=== PATIENT | female | born 1960 | race Caucasian/White ===

== ENCOUNTER → 2017-12-21 | Outpatient (CLI) | payer OTHER ==
--- NOTE | 2017-12-21 12:04 | XR ---
EXAMINATION TYPE: XR foot complete LT DATE OF EXAM: 12/21/2017 COMPARISON: NONE HISTORY: 57-year-old female crushing injury to the left foot, bruising across the second and third me tatarsals. TECHNIQUE: 3 views FINDINGS: Excessive flexion of the toes limits their assessment. Further limitations due to diffuse osteopenia. There is some slight angulation and lucency at the fourth metatarsal neck. Findings suggest age inde terminate fracture. Moderate to severe degenerative change at the third MTP joint. Midfoot alignment is maintained. IMPRESSION: 1. Some lucency and slight angulation at the fourth metatarsal neck. Age-indeterminate fracture. Oscar elate for point tenderness here to assess acuity. 2. Otherwise, no other acute fracture seen.
== END | disposition home or self-care (01) ==
LOC: RADXRMAIN 11:36
PROVIDERS: ATTEND Emergency Medicine
DX: S97.82XA Crushing injury of left foot, initial encounter (principal)

== ENCOUNTER → 2018-04-11 | Outpatient (CLI) | payer BC ==
[2018-04-11 11:07] LABS: Basophils % (A) 1 %; Eosinophils # (A) 0.2 k/uL (0-0.7); Eosinophils % (A) 4 %; HCT 39.2 % (34.0-46.0); HGB 11.9 gm/dL (11.4-16.0); Hypochromasia Marked; Lymphocytes # (A) 1.7 k/uL (1.0-4.8); Lymphocytes % (A) 36 %; MCH 23.5 pg (25.0-35.0); MCHC 30.4 g/dL (31.0-37.0); MCV 77.2 fL (80.0-100.0); Mean Platelet Volume 6.7; Monocytes # (A) 0.3 k/uL (0-1.0); Monocytes % (A) 6 %; Neutrophils # (A) 2.3 k/uL (1.3-7.7); Neutrophils % (A) 50 %; Platelet Count 177 k/uL (150-450); RBC 5.08 m/uL (3.80-5.40); WBC 4.6 k/uL (3.8-10.6)
[2018-04-11 11:15] LABS: Albumin 3.9 g/dL (3.5-5.0); Calcium 9.2 mg/dL (8.4-10.2); Potassium 4.7 mmol/L (3.5-5.1); Total Protein 6.7 g/dL (6.3-8.2)
[2018-04-11 18:48] LABS: Iron Saturation 8.55 (12.00-45.00)
[2018-04-11 19:36] LABS: Hepatitis C IgG Antibody Non-Reactive (Non-Reactive)
== END | disposition home or self-care (01) ==
LOC: LABWHC1 10:23
PROVIDERS: ATTEND Internal Medicine
DX: D64.9 Anemia, unspecified (principal); E53.8 Deficiency of other specified B group vitamins; R63.5 Abnormal weight gain; Z13.6 Encounter for screening for cardiovascular disorders; Z13.9 Encounter for screening, unspecified
CPT/HCPCS: 36415; 80053; 80061; 82607; 83540; 83550; 84443; 85025; 86803

== ENCOUNTER → 2018-05-07 | Outpatient (CLI) | payer BC ==
--- NOTE | 2018-05-10 08:35 | MM ---
Reason for exam: screening (asymptomatic). Last mammogram was performed 3 years and 2 months ago. History: Patient is postmenopausal. Physical Findings: A clinical breast exam by your physician is recommended on an annual basis and results should be correlated with mammographic findings. MG 3D Screening Mammo W/Cad Bilateral CC and MLO view(s) were taken. Prior study comparison: March 18, 2015, mammogram. The breast tissue is heterogeneously dense. This may lower the sensitivity of mammography. No significant changes when compared with prior studies. ASSESSMENT: Benign, BI-RAD 2 RECOMMENDATION: Routine screening mammogram of both breasts in 1 year.
== END | disposition home or self-care (01) ==
LOC: RADMAMWWP 07:01
PROVIDERS: ATTEND Internal Medicine
DX: Z12.31 Encounter for screening mammogram for malignant neoplasm of breast (principal)
CPT/HCPCS: 77063; 77067

== ENCOUNTER → 2018-12-24 | Outpatient (CLI) | payer BC ==
[2018-12-24 12:54] LABS: INR 0.9 (<1.2); Partial Thromboplastin Time 24.8 sec (22.0-30.0)
[2018-12-24 13:40] LABS: Anisocytosis Slight; HCT 36.3 % (34.0-46.0); HGB 10.8 gm/dL (11.4-16.0); Hypochromasia Moderate; MCH 23.8 pg (25.0-35.0); MCHC 29.6 g/dL (31.0-37.0); MCV 80.3 fL (80.0-100.0); Mean Platelet Volume 6.8; Platelet Count 171 k/uL (150-450); RBC 4.52 m/uL (3.80-5.40)
[2018-12-24 18:44] LABS: ALT 14 U/L (8-44); AST 18 U/L (13-35); Albumin/Globulin Ratio 1.95 (1.60-3.17); Alkaline Phosphatase 59 U/L (41-126); Calcium 8.9 mg/dL (8.7-10.3); Carbon Dioxide 28.5 mmol/L (21.6-31.8); Chloride 111 mmol/L (96-109); Cholesterol 132 mg/dL (0-200); Globulin 1.9 g/dL (1.6-3.3); Glucose 78 mg/dL (70-110); Phosphorus 4.2 mg/dL (2.4-5.1); Potassium 4.6 mmol/L (3.5-5.5); Sodium 142 mmol/L (135-145); Total Bilirubin 0.8 mg/dL (0.3-1.2); Total Protein 5.6 g/dL (6.2-8.2); Triglycerides <50.0 mg/dL (0.0-149.0); VLDL Calculation 9.98 mg/dL (5.00-40.00)
[2018-12-24 18:45] LABS: Iron Saturation 18.77 (12.00-45.00)
[2018-12-24 19:03] LABS: Vitamin D 25 Hydroxy 78.5 ng/mL (30.0-100.0)
[2018-12-24 19:04] LABS: Folate, Serum 10.7 ng/mL
[2018-12-24 20:21] LABS: Parathyroid Hormone Intact 66.9 pg/mL (14.0-72.0)
[2018-12-24 23:03] LABS: Hemoglobin A1C 5.4 % (4.0-6.0)
[2018-12-25 12:46] LABS: Zinc, Serum 58 ug/dL (60-130)
[2018-12-26 08:07] LABS: Vitamin A 41 ug/dL (38-106)
[2018-12-26 15:32] LABS: Vit B1(Thiamine) 66 ug/L (38-122)
[2018-12-26 19:13] LABS: Selenium 103 mcg/L (63-160)
== END | disposition home or self-care (01) ==
LOC: LABWHC1 11:23
PROVIDERS: ATTEND Surgery Plastic and Reconstructive Surgery
DX: Z01.810 Encounter for preprocedural cardiovascular examination (principal); E66.01 Morbid (severe) obesity due to excess calories; E21.1 Secondary hyperparathyroidism, not elsewhere classified; D50.8 Other iron deficiency anemias; K90.89 Other intestinal malabsorption; E55.9 Vitamin D deficiency, unspecified; K74.1 Hepatic sclerosis; N19 Unspecified kidney failure; K50.80 Crohn's disease of both small and large intestine without complications
CPT/HCPCS: 36415; 80053; 80061; 82306; 82525; 82607; 82728; 82746; 83036; 83540; 83550; 83735; 83970; 84100; 84134; 84255; 84425; 84443; 84590; 84630; 85027; 85610; 85730; 93005

== ENCOUNTER → 2018-12-27 | Outpatient (CLI) | payer BC ==
--- NOTE | 2018-12-27 13:18 | US ---
EXAMINATION TYPE: US gallbladder DATE OF EXAM: 12/27/2018 COMPARISON: NONE CLINICAL HISTORY: K80.20 Gallstones. EXAM MEASUREMENTS: Liver Length: 11.5 cm Gallbladder Wall: 0.3 cm CBD: 0.3 cm Right Kidney: 10.6 x 3.1 x 4.8 cm Pancreas: visualized portions wnl Liver: wnl Gallbladder: many small mobile echogenic stones. There are multiple folds in gallbladder. Evidence for sonographic Rhodes's sign: Yes CBD: wnl Right Kidney: No hydronephrosis or masses seen IMPRESSION: 1. Multiple small echogenic gallstones. No wall thickening or pericholecystic fluid at this time.
--- NOTE | 2018-12-30 11:42 | NM ---
Nuclear medicine hepatobiliary scan. HISTORY: Pain. DOSAGE: The patient received and 4.8 mCi of Technetium 99m Choletec. FINDINGS: There is normal hepatic extraction. The gallbladder is seen by 20 minutes. There is bilia ry to bowel clearance by 50 minutes. Ejection fraction is not performed due to the presence of galls tones. IMPRESSION: 1. There is normal filling of the gallbladder with no diagnostic evidence of cholecystitis.
== END | disposition home or self-care (01) ==
LOC: RADUSWWP 12:44
PROVIDERS: ATTEND Surgery Plastic and Reconstructive Surgery
DX: K80.20 Calculus of gallbladder without cholecystitis without obstruction (principal)
CPT/HCPCS: 76705; 78226; A9537

== ENCOUNTER 2018-12-30 12:12 | Emergency (ER) | payer BC ==
[2018-12-30 12:18] VITALS: RESP 18
[2018-12-30] MEDS ORDERED: SODIUM CHLORIDE 0.9% 1,000 ML IV STA (12:26)
[2018-12-30] MEDS ORDERED: ONDANSETRON 4 MG/2 ML VIAL IVP STA (12:26)
[2018-12-30] MEDS ORDERED: HYDROmorphone 0.5 MG/0.5 ML SYRINGE IVP STA (12:35)
[2018-12-30 13:01] LABS: Anisocytosis Slight; Basophils % (A) 1 %; Eosinophils # (A) 0.2 k/uL (0-0.7); Eosinophils % (A) 5 %; HCT 35.3 % (34.0-46.0); HGB 10.6 gm/dL (11.4-16.0); Hypochromasia Slight; Lymphocytes # (A) 1.3 k/uL (1.0-4.8); Lymphocytes % (A) 24 %; MCH 24.4 pg (25.0-35.0); MCHC 30.1 g/dL (31.0-37.0); MCV 80.9 fL (80.0-100.0); Monocytes # (A) 0.3 k/uL (0-1.0); Monocytes % (A) 6 %; Neutrophils # (A) 3.3 k/uL (1.3-7.7); Neutrophils % (A) 64 %; Platelet Count 174 k/uL (150-450); RBC 4.37 m/uL (3.80-5.40); RDW 16.6 % (11.5-15.5); WBC 5.2 k/uL (3.8-10.6)
--- NOTE | 2018-12-30 13:06 | ED ---
Abdominal Pain HPI - General Chief Complaint: Abdominal Pain Stated Complaint: gallbladder Source: patient, RN notes reviewed Mode of arrival: ambulatory Limitations: no limitations - History of Present Illness Initial Comments: 58-year-old female presents emergency Department with chief complaint of abdominal pain. Patient states started this morning after she ate some soup. Patient states that severe upper abdominal pain radiates. Patient states that she's had this ongoing issue over the last 4-6 weeks and which she has seen Dr. Noonan for. Patient states that she does have an ultrasound and HIDA scan which showed evidence of gallstones. She states they're planning surgery. Patient denies any chest pain, shortness breath, dysuria, hematuria, diarrhea constipation. - Related Data Home Medications Medication Instructions Recorded Confirmed Acetaminophen Tab [Tylenol Tab] 1,000 mg PO Q6HR PRN 12/30/18 12/30/18 Cholecalciferol (Vitamin D3) 2,000 unit PO DAILY 12/30/18 12/30/18 [Vitamin D3] Multivitamins, Thera [Multivitamin 1 tab PO DAILY 12/30/18 12/30/18 (formulary)] Potassium 99 mg PO DAILY 12/30/18 12/30/18 Previous Rx's Medication Instructions Recorded Ondansetron Odt [Zofran Odt] 4 mg PO Q8HR PRN #10 tab 12/30/18 Allergies Allergy/AdvReac Type Severity Reaction Status Date / Time No Known Allergies Allergy Verified 12/30/18 12:37 Review of Systems ROS Statement: Those systems with pertinent positive or pertinent negative responses have been documented in the HPI. ROS Other: All systems not noted in ROS Statement are negative. Past Medical History Past Medical History: No Reported History History of Any Multi-Drug Resistant Organisms: None Reported Past Surgical History: Bariatric Surgery Additional Past Surgical History / Comment(s): gastric sleeve, gastric surgery and reversal Past Psychological History: No Psychological Hx Reported Smoking Status: Never smoker Past Alcohol Use History: None Reported Past Drug Use History: None Reported General Exam Limitations: no limitations General appearance: alert, in no apparent distress Head exam: Present: atraumatic, normocephalic, normal inspection Neck exam: Present: normal inspection, full ROM. Absent: tenderness, meningismus, lymphadenopathy Respiratory exam: Present: normal lung sounds bilaterally. Absent: respiratory distress, wheezes, rales, rhonchi, stridor Cardiovascular Exam: Present: regular rate, normal rhythm, normal heart sounds. Absent: systolic murmur, diastolic murmur, rubs, gallop, clicks GI/Abdominal exam: Present: soft, tenderness (Moderate upper abdominal ten derness), normal bowel sounds. Absent: distended, guarding, rebound, rigid Back exam: Absent: CVA tenderness (R), CVA tenderness (L) Skin exam: Present: warm, dry, intact, normal color. Absent: rash Course Vital Signs 12/30/18 12:15 Temperature 97.8 F Pulse Rate 67 Respiratory 18 Rate Blood Pressure 126/68 O2 Sat by Pulse 100 Oximetry Medical Decision Making - Medical Decision Making 58-year-old female present for abdominal pain. Patient has had recent workup including HIDA SCAN. ULTRASOUND SHOWS MULTIPLE GALLSTONES. SYMPTOMS ARE CONSISTENT WITH THIS. PATIENT DID A FATTY FOODS MORNING. PATIENT HAS IMPROVED AFTER IV FLUIDS AND PAIN MEDICATION. PATIENT WILL BE DISCHARGED RETURN PARAMETERS WERE DISCUSSED. - Lab Data Result diagrams: 12/30/18 12:56 12/30/18 12:56 Lab Results 12/30/18 12/30/18 12/30/18 Range/Units 12:56 12:56 12:56 WBC 5.2 (3.8-10.6) k/uL RBC 4.37 (3.80-5.40) m/uL Hgb 10.6 L (11.4-16.0) gm/dL Hct 35.3 (34.0-46.0) % MCV 80.9 (80.0-100.0) fL MCH 24.4 L (25.0-35.0) pg MCHC 30.1 L (31.0-37.0) g/dL RDW 16.6 H (11.5-15.5) % Plt Count 174 (150-450) k/uL Neutrophils % 64 % Lymphocytes % 24 % Monocytes % 6 % Eosinophils % 5 % Basophils % 1 % Neutrophils # 3.3 (1.3-7.7) k/uL Lymphocytes # 1.3 (1.0-4.8) k/uL Monocytes # 0.3 (0-1.0) k/uL Eosinophils # 0.2 (0-0.7) k/uL Basophils # 0.0 (0-0.2) k/uL Hypochromasia Slight Anisocytosis Slight Sodium 143 (137-145) mmol/L Potassium 4.4 (3.5-5.1) mmol/L Chloride 113 H (98-107) mmol/L Carbon Dioxide 24 (22-30) mmol/L Anion Gap 6 mmol/L BUN 12 (7-17) mg/dL Creatinine 0.82 (0.52-1.04) mg/dL Est GFR (CKD-EPI)AfAm >90 (>60 ml/min/1.73 sqM) Est GFR (CKD-EPI)NonAf 80 (>60 ml/min/1.73 sqM) Glucose 76 (74-99) mg/dL Calcium 8.9 (8.4-10.2) mg/dL Total Bilirubin 0.9 (0.2-1.3) mg/dL AST 17 (14-36) U/L ALT 20 (9-52) U/L Alkaline Phosphatase 56 (38-126) U/L Total Protein 5.7 L (6.3-8.2) g/dL Albumin 3.2 L (3.5-5.0) g/dL Amylase 70 (30-110) U/L Lipase 240 (23-300) U/L Urine Color Colorless Urine Appearance Clear (Clear) Urine pH 6.5 (5.0-8.0) Ur Specific [place] 1.002 (1.001-1.035) Urine Protein Negative (Negative) Urine Glucose (UA) Negative (Negative) Urine Ketones Negative (Negative) Urine Blood Negative (Negative) Urine Nitrite Negative (Negative) Urine Bilirubin Negative (Negative) Urine Urobilinogen <2.0 (<2.0) mg/dL Ur Leukocyte Esterase Small H (Negative) Urine RBC 1 (0-5) /hpf Urine WBC 19 H (0-5) /hpf Urine Bacteria Rare H (None) /hpf Disposition Clinical Impression: Biliary colic, Cholelithiasis Disposition: HOME SELF-CARE Condition: Stable Instructions (If sedation given, give patient instructions): Biliary Colic (ED), Gallstones (ED), Low Fat Diet (ED) Additional Instructions: Please return to the Emergency Department if symptoms worsen or any other concerns. Prescriptions: Ondansetron Odt [Zofran Odt] 4 mg PO Q8HR PRN #10 tab PRN Reason: Nausea Is patient prescribed a controlled substance at d/c from ED?: No Referrals: Hernan Melendez MD [Primary Care Provider] - 1-2 days Chari Matthew MD [STAFF PHYSICIAN] - 1-2 days Time of Disposition: 14:15
[2018-12-30 13:12] LABS: ALT 20 U/L (9-52); AST 17 U/L (14-36); Albumin 3.2 g/dL (3.5-5.0); Alkaline Phosphatase 56 U/L (38-126); Amylase 70 U/L (30-110); Anion Gap 6 mmol/L; Blood Urea Nitrogen 12 mg/dL (7-17); Calcium 8.9 mg/dL (8.4-10.2); Carbon Dioxide 24 mmol/L (22-30); Chloride 113 mmol/L (98-107); Glucose 76 mg/dL (74-99); Lipase 240 U/L (23-300); Potassium 4.4 mmol/L (3.5-5.1); Sodium 143 mmol/L (137-145); Total Bilirubin 0.9 mg/dL (0.2-1.3); Total Protein 5.7 g/dL (6.3-8.2)
[2018-12-30 13:17] LABS: Appearance,Urine Clear (Clear); Bacteria,Urine Rare /hpf; Bilirubin,Urine Negative (Negative); Blood,Urine Negative (Negative); Color,Urine Colorless; Glucose,Urine (UA) Negative (Negative); Ketones,Urine Negative (Negative); Leukocyte Esterase,Urine Small (Negative); Nitrite,Urine Negative (Negative); PH, Urine 6.5 (5.0-8.0); Protein,Urine Negative (Negative); RBC,Urine 1 /hpf (0-5); Specific Gravity,Urine 1.002 (1.001-1.035); Urobilinogen,Urine <2.0 mg/dL (<2.0)
[2018-12-30] MEDS ORDERED: ACET/COD 300 MG/30 MG STARTER PACK 6 TAB BTL PO STA (14:15)
[2018-12-30 14:28] VITALS: BP 103/72; PULSE 66; TEMP 97.9
== END 2018-12-30 14:28 | disposition home or self-care (01) ==
LOC: EC 12:12
DX: K80.70 Calculus of gallbladder and bile duct without cholecystitis without obstruction (principal); Z98.84 Bariatric surgery status
CPT/HCPCS: 36415; 80053; 82150; 83690; 85025; 81001; 87086; 99284; 96374; 96375; 96361 ×2; J2405; J1170; 87077; 87186

== ENCOUNTER 2019-02-07 06:49 | Day surgery (SDC) | payer BC ==
[2019-02-05 08:20] VITALS: BMI 32.8
--- NOTE | 2019-02-07 06:21 | P.GSHP ---
History of Present Illness H&P Date: 02/07/19 CHIEF COMPLAINT: Cholecystitis HISTORY OF PRESENT ILLNESS: The patient is a 58-year-old female who presents with history of epigastric including right upper quadrant abdominal pain. She underwent diagnostic studies for her gallbladder. Separately her clinical picture was consistent with cholecystitis. Now she presents for surgical intervention. PAST MEDICAL HISTORY: Please see list PAST SURGICAL HISTORY: Please see list MEDICATIONS: Please see list ALLERGIES: Denies. SOCIAL HISTORY: No illicit drug use or recent tobacco use FAMILY HISTORY: Pertinent for gallbladder disease REVIEW OF ORGAN SYSTEMS: CONSTITUTIONAL: No reports of fevers or chills. HEENT: Denies any troubles with the vision or hearing. PHYSICAL EXAM: VITAL SIGNS: Afebrile vital signs stable GENERAL: Well-developed pleasant in no acute distress. HEENT: No scleral icterus. Extraocular movements grossly intact. Moist buccal mucosa. NECK: Supple without lymphadenopathy. CHEST: Unlabored respirations. Equal bilateral excursions. CARDIOVASCULAR: Regular rate regular rhythm rhythm. Distal 2+ pulses. ABDOMEN: Soft, nondistended. Tender along the epigastrium and right upper quadrant. MUSCULOSKELETAL: No clubbing, cyanosis, or edema. NEURO: Cranial nerves II to XII within normal limits. No focal or lateralizing signs. PSYCH: Alert and oriented to person, place and time. SKIN: Well-perfused good skin turgor. ASSESSMENT: 1. Epigastric and right upper quadrant abdominal pain 2. Chronic cholecystitis 3. Symptomatic gallstones. PLAN: 1. Will need a robotic cholecystectomy possible open. Benefits and risks were described. 2. Heparin for DVT prophylaxis 5000 units. 3. Antibiotic prophylaxis. Past Medical History Past Medical History: No Reported History Additional Past Medical History / Comment(s): intermittent rt abd pain with nausea,hypoglycemia History of Any Multi-Drug Resistant Organisms: None Reported Past Surgical History: Bariatric Surgery, Tonsillectomy Additional Past Surgical History / Comment(s): gastric sleeve, gastric surgery and reversal of gastric sleeve Past Anesthesia/Blood Transfusion Reactions: No Reported Reaction Additional Past Anesthesia/Blood Transfusion Reaction / Comment(s): no problems with prior blood transfusion Smoking Status: Never smoker - Past Family History Mother Family Medical History: Deep Vein Thrombosis (DVT) Medications and Allergies Home Medications Medication Instructions Recorded Confirmed Type Acetaminophen Tab [Tylenol Tab] 1,000 mg PO Q6HR PRN 12/30/18 02/05/19 History Cholecalciferol (Vitamin D3) 2,000 unit PO DAILY 12/30/18 02/05/19 History [Vitamin D3] Multivitamins, Thera [Multivitamin 1 tab PO DAILY 12/30/18 02/05/19 History (formulary)] Potassium 99 mg PO DAILY 12/30/18 02/05/19 History Allergies Allergy/AdvReac Type Severity Reaction Status Date / Time No Known Allergies Allergy Verified 02/05/19 08:14
[~2019-02-07 06:49] MED LIST: DEXAMETHASONE SOD PHOSPHATE 10 MG/ML 1 ML VIAL IV ONE; HEPARIN SODIUM,PORCINE 5,000 UNIT/ML 1 ML VIAL SQ ONE; INDOCYANINE GREEN 25 MG VIAL IV STA; LACTATED RINGERS 1,000 ML IV SCH; MIDAZOLAM 2 MG/2 ML VIAL IV PRN; ONDANSETRON 4 MG/2 ML VIAL IVP ONE; SCOPOLAMINE 1.5MG/72HR PATCH TRANSDERM ONE; ceFAZolin IN SWFI 2 GM/20 ML SYRINGE IVP ONE
[2019-02-07 07:11] VITALS: TEMP 98
[2019-02-07] MEDS ORDERED: LIDOCAINE 1% 20 ML VIAL (10MG/ML) FOR IV START INTRADERMA ONE (07:31)
[2019-02-07 07:38] LABS: Glucose,Whole Blood 72 mg/dL (75-99)
[2019-02-07] MEDS ORDERED: LIDOCAINE 1% INJ 10MG/ML (20 ML MDV) ONE (09:09)
[2019-02-07] MEDS ORDERED: HYDROmorphone (PF) 1 MG/ML ONE (09:09)
[2019-02-07] MEDS ORDERED: SUCCINYLCHOLINE CHLORIDE 100 MG/5 ML SYR IV ONE (09:09)
[2019-02-07] MEDS ORDERED: ROCURONIUM BROMIDE 10 MG/ML 10 ML VIAL IV ONE (09:09)
[2019-02-07] MEDS ORDERED: fentaNYL (PF) 50 MCG/ML 2 ML AMP ONE (09:09)
[2019-02-07] MEDS ORDERED: NEOSTIGMINE 1 MG/ML 10 ML VIAL ONE (09:09)
[2019-02-07] MEDS ORDERED: KETOROLAC 30 MG/ML 1 ML VIAL ONE (09:09)
[2019-02-07] MEDS ORDERED: GLYCOPYRROLATE 0.2 MG/ML 2 ML VIAL ONE (09:09)
[2019-02-07] MEDS ORDERED: MIDAZOLAM 2 MG/2 ML VIAL ONE (09:09)
[2019-02-07] MEDS ORDERED: PROPOFOL 10 MG/ML 20 ML VIAL IV ONE (09:09)
[2019-02-07] MEDS ORDERED: BUPIVACAINE (PF) 0.5% 30 ML VIAL SQ ONE (09:39)
--- NOTE | 2019-02-07 10:54 | P.OP ---
Date of Procedure: 02/07/19 Description of Procedure: SURGEON: CONNOR CATALAN MD PREOPERATIVE DIAGNOSES: 1. Right upper quadrant abdominal pain 2. Chronic cholecystitis 3. Obesity due to excess calories, BMI 32.8 4. History of sleeve gastrectomy POSTOPERATIVE DIAGNOSES: 1. Right upper quadrant abdominal pain 2. Chronic cholecystitis 3. Obesity due to excess calories, BMI 32.8 4. History of sleeve gastrectomy 5. Sever peritoneal adhesions bilateral upper abdomen OPERATION: 1. Robotic-assisted da Yoni Xi laparoscopic extensive assistance of adhesions over 35 minutes 2. Robotic-assisted da Yoni Xi laparoscopic cholecystectomy, multiport with FIREFLY ESTIMATED BLOOD LOSS: 20 mL. SPECIMENS REMOVED: Gallbladder. COMPLICATIONS: None. OPERATIVE FINDINGS: 1. Severe bilateral upper abdominal adhesions from previous multiple surgeries. 2. Severe adhesions obscuring the gallbladder omentum to the undersurface of left and right liver 3. Chronic cholecystitis 4. Lower abdomen unremarkable INDICATIONS: The patient is a 58-year-old female who presents with bilateral upper abdominal pain and cholelcystitis. Surgical intervention with a laparoscopic cholecystectomy was described at length including injury to the biliary tree, bleeding, infection, need for further surgery. Informed consent was obtained. Robotic assisted laparoscopic approach was described. Benefits and risks of the procedure including but not limited to bleeding, infection, injury to the biliary tree was described. Informed consent was obtained. DESCRIPTION OF PROCEDURE: Patient was brought to the operating room, placed in supine position. After general induction, the abdomen had been prepped and draped in standard sterile fashion. The robotic da Yoni XI system was primed. After a timeout protocol was performed, the patient had been prepped and draped in standard sterile fashion. The patient was injected with indocyanine green. A 5 mm 0 degrees laparoscopic trocar entry was performed along the left upper quadrant. The abdomen insufflated to 15 mmHg pressure which was tolerated well. Diagnostic laparoscopy demonstrated no injury to bowel viscera or mesentery. The liver surface was unremarkable. Next, two 8 mm robotic ports were placed along the right upper abdomen. The camera 8-mm port was maintained along the epigastrium. Another 8 mm port was placed along the left upper abdominal wall after exchanging the 5 mm port. Please note that the ports were placed at least 10 to 15 cm away from the target anatomy of the gallbladder. The robot was docked along the left lateral abdomen. The patient was repositioned in reverse Trendelenburg position. Using a grasper for arm 3, a grasper for arm 4, including hook cautery for arm 1, the robotic system was docked and primed as described. Instruments were interchanged by the psychiatric assistant including hook cautery, Bovie cautery and clip appliers. I had sat at the console. Severe peritoneal adhesions of omentum to the mid abdominal wall including undersurface of the liver and gallbladder was identified. Extensive lysis of adhesions using combination of vessel sealer including hook cautery was used to release adhesions of the abdominal wall and dissect the gallbladder free from scar tissue over 35 minutes. The gallbladder fundus was retracted over the dome of the liver. Initial attention was brought to the infundibulum which was gently retracted in the inferior lateral approach. Using a grasper, the cystic duct including the cystic artery was carefully skeletonized. FIREFLY was used to identify the cystic artery and cystic structures. Large PLASTIC clips were used throughout the entire case. Using a clip automatic driller and reamer 2 clips were placed proximally, and 1 clip was placed distally along the cystic duct and then cauterized with the cautery. Again care was taken to avoid any injury to the biliary tree as the common bile duct was clearly visualized during this portion of dissection. Next, the cystic artery was similarly clipped and cauterized. Electro-Bovie cautery was used to remove the gallbladder from the hepatic fossa. Hemostasis was checked and found to be adequate. The robot was undocked. I re-scrubbed into the case. Using a 10 mm Endo Catch bag via the left upper quadrant incision, the specimen was removed from the abdominal cavity. All pneumoperitoneum instruments were evacuated from the abdominal cavity. The incisions were reapproximated using 4-0 Monocryl in an interrupted subcuticular fashion. Fascial defects were less than 8 mm in size. Please note along the trocar sites, local anesthetic was placed as a field block prior to insertion of all instruments. Liquid glue was applied to the skin. At the end of the procedure needle, sponge, and instrument count had been verified correct by the windows server support technician. The patient was transferred to postanesthesia care unit in stable condition. Intraoperative films were shared with the patient's family who were very pleased with the level of care. Console time 45 minutes Plan - Discharge Summary Discharge Rx Participant: No New Discharge Prescriptions: No Action Potassium 99 mg PO DAILY Acetaminophen Tab [Tylenol Tab] 1,000 mg PO Q6HR PRN PRN Reason: Pain Multivitamins, Thera [Multivitamin (formulary)] 1 tab PO DAILY Cholecalciferol (Vitamin D3) [Vitamin D3] 2,000 unit PO DAILY Discharge Medication List Acetaminophen Tab [Tylenol Tab] 1,000 mg PO Q6HR PRN 12/30/18 [History] Cholecalciferol (Vitamin D3) [Vitamin D3] 2,000 unit PO DAILY 12/30/18 [History] Multivitamins, Thera [Multivitamin (formulary)] 1 tab PO DAILY 12/30/18 [History] Potassium 99 mg PO DAILY 12/30/18 [History]
[2019-02-07] MEDS ORDERED: IV FLUID CONTINUATION 1,000 ML IV ONE (11:00)
[2019-02-07] MEDS: HYDROmorphone 0.5 MG/0.5 ML SYRINGE IVP PRN ×3 (11:22→12:02)
[2019-02-07] MEDS ORDERED: HYDROcodone/APAP 5-325MG 1 EACH TAB PO ONE (12:29)
[2019-02-07 13:01] VITALS: RESP 18
[2019-02-07 13:09] VITALS: BP 116/77; PULSE 59
== END 2019-02-07 13:24 | disposition home or self-care (01) ==
LOC: OR 06:49
PROVIDERS: ATTEND Surgery Plastic and Reconstructive Surgery
DX: K80.10 Calculus of gallbladder with chronic cholecystitis without obstruction (principal); K66.0 Peritoneal adhesions (postprocedural) (postinfection); K21.9 Gastro-esophageal reflux disease without esophagitis; E66.09 Other obesity due to excess calories; Z68.32 Body mass index [BMI] 32.0-32.9, adult
CPT/HCPCS: 47562; S2900; 88304

== ENCOUNTER → 2019-02-18 | Outpatient (CLI) | payer BC | END | disposition home or self-care (01) | LOC: DBWHC3 11:36 | PROVIDERS: ATTEND Surgery Plastic and Reconstructive Surgery | DX: Z53.9 Procedure and treatment not carried out, unspecified reason (principal) ==

== ENCOUNTER → 2019-02-20 | Outpatient (CLI) | payer BC ==
--- NOTE | 2019-02-20 09:25 | FL ---
EXAMINATION TYPE: FL barium swallow DATE OF EXAM: 02/20/2019 CLINICAL HISTORY: Remote history of Adrian-en-Y converted to gastric sleeve into thousand 13. Recent ch olecystectomy with nausea and vomiting. Dysphagia. TECHNIQUE: A double contrast esophagram is performed utilizing air and barium. A total of 2 minutes and 12 seconds of fluoroscopic time was utilized during procedure. 32 fluoroscopic images were saved COMPARISON: None FINDINGS: The esophagus shows abnormal motility particularly on the gravity independent portion of th e examination resulting in severe intraesophageal reflux and vomiting of the contrast. The esophagus demonstrates no primary peristaltic wave, no secondary wave, and no tertiary contractions. On the upr ight portion the examination there is emptying into the stomach with smooth mucosa of the esophagus. No stricture or hernia is seen. No contrast extravasation. On the gravity-dependent upright portion t he examination is mild gastroesophageal reflux is reproducible throughout. IMPRESSION: 1. Abnormal esophageal motility. Absence of esophageal contractions particularly on the supine portio n of the examination resulting in vomiting due to severe intraesophageal reflux. 2. No stricture or hernia. 3. In the upright position there is mild gastroesophageal reflux reproduced throughout the exam.
== END | disposition home or self-care (01) ==
LOC: RADUSWWP 07:09
PROVIDERS: ATTEND Surgery Plastic and Reconstructive Surgery
DX: K21.9 Gastro-esophageal reflux disease without esophagitis (principal)
CPT/HCPCS: 74220

== ENCOUNTER → 2019-07-24 | Outpatient (CLI) | payer BC ==
[2019-07-24 10:01] LABS: Basophils % (A) 0 %; Eosinophils # (A) 0.2 k/uL (0-0.7); Eosinophils % (A) 4 %; HCT 42.8 % (34.0-46.0); HGB 13.3 gm/dL (11.4-16.0); Lymphocytes # (A) 1.4 k/uL (1.0-4.8); Lymphocytes % (A) 30 %; MCH 26.9 pg (25.0-35.0); MCHC 31.1 g/dL (31.0-37.0); MCV 86.5 fL (80.0-100.0); Monocytes # (A) 0.3 k/uL (0-1.0); Monocytes % (A) 6 %; Neutrophils # (A) 2.7 k/uL (1.3-7.7); Neutrophils % (A) 57 %; Platelet Count 192 k/uL (150-450); RBC 4.95 m/uL (3.80-5.40); RDW 12.3 % (11.5-15.5); WBC 4.8 k/uL (3.8-10.6)
[2019-07-24 10:11] LABS: INR 0.9 (<1.2); Partial Thromboplastin Time 24.8 sec (22.0-30.0); Prothrombin Time 9.8 sec (9.0-12.0)
[2019-07-25 05:22] LABS: % Iron Saturation 26.07 (12.00-45.00); ALT 28 U/L (8-44); AST 31 U/L (13-35); African American GFR (CKD) 72.4 (60.0-200.0); Alkaline Phosphatase 74 U/L (41-126); Carbon Dioxide 29.2 mmol/L (21.6-31.8); Chloride 104 mmol/L (96-109); Cholesterol 140 mg/dL (0-200); Globulin 1.9 g/dL (1.6-3.3); Glucose 77 mg/dL (70-110); Iron 73 ug/dL (50-170); Potassium 4.3 mmol/L (3.5-5.5); Sodium 144 mmol/L (135-145); Total Bilirubin 0.9 mg/dL (0.2-1.2); Total Iron Binding Capacity 280 ug/dL (228-460); Total Protein 5.7 g/dL (6.2-8.2); Triglycerides <50.0 mg/dL (0.0-149.0)
[2019-07-25 13:02] LABS: Zinc, Serum 71 ug/dL (60-130)
[2019-07-26 12:04] LABS: Vit B1(Thiamine) 78 ug/L (38-122)
== END | disposition home or self-care (01) ==
LOC: LABWHC1 09:02
PROVIDERS: ATTEND Internal Medicine
DX: E53.8 Deficiency of other specified B group vitamins (principal); D64.9 Anemia, unspecified; E55.9 Vitamin D deficiency, unspecified; R04.0 Epistaxis; Z13.6 Encounter for screening for cardiovascular disorders; Z98.84 Bariatric surgery status
CPT/HCPCS: 36415; 80053; 80061; 82306; 82525; 82607; 82747; 83540; 83550; 83735; 84207; 84425; 84630; 85025; 85610; 85730

== ENCOUNTER → 2019-10-02 | Outpatient (CLI) | payer BC ==
--- NOTE | 2019-10-03 11:10 | MM ---
Reason for exam: screening (asymptomatic). Last mammogram was performed 1 year and 5 months ago. History: Patient is postmenopausal. Physical Findings: A clinical breast exam by your physician is recommended on an annual basis and results should be correlated with mammographic findings. MG Screening Mammo w CAD Bilateral CC and MLO view(s) were taken. Prior study comparison: May 07, 2018, bilateral MG 3d screening mammo w/cad. March 18, 2015, mammogram. The breast tissue is heterogeneously dense. This may lower the sensitivity of mammography. No suspicious abnormality. No significant changes when compared with prior studies. ASSESSMENT: Negative, BI-RAD 1 RECOMMENDATION: Routine screening mammogram of both breasts in 1 year.
== END | disposition home or self-care (01) ==
LOC: RADMAMWWP 10:28
PROVIDERS: ATTEND Internal Medicine
DX: Z12.31 Encounter for screening mammogram for malignant neoplasm of breast (principal)
CPT/HCPCS: 77067

== ENCOUNTER → 2020-07-20 | Outpatient (CLI) | payer BC ==
[~2020-07-20] MED LIST changes: -DEXAMETHASONE SOD PHOSPHATE 10 MG/ML 1 ML VIAL IV ONE; -HEPARIN SODIUM,PORCINE 5,000 UNIT/ML 1 ML VIAL SQ ONE; -INDOCYANINE GREEN 25 MG VIAL IV STA; +IRON SUCROSE 200 MG in SODIUM CHLORIDE 0.9% 100 ML IVPB ONE; -LACTATED RINGERS 1,000 ML IV SCH; -MIDAZOLAM 2 MG/2 ML VIAL IV PRN; -ONDANSETRON 4 MG/2 ML VIAL IVP ONE; -SCOPOLAMINE 1.5MG/72HR PATCH TRANSDERM ONE; +SODIUM CHLORIDE 0.9% 500 ML 500 ML in EMPTY BAG 1 BAG IV PRN; -ceFAZolin IN SWFI 2 GM/20 ML SYRINGE IVP ONE
[2020-07-20 13:19] VITALS: BP 111/78; PULSE 64; RESP 16; TEMP 97.7
[2020-07-20 13:49] LABS: Basophils % (A) 0 %; Eosinophils # (A) 0.2 k/uL (0-0.7); Eosinophils % (A) 5 %; HCT 32.7 % (34.0-46.0); HGB 9.9 gm/dL (11.4-16.0); Hypochromasia Marked; Lymphocytes # (A) 1.1 k/uL (1.0-4.8); Lymphocytes % (A) 22 %; MCH 26.7 pg (25.0-35.0); MCHC 30.3 g/dL (31.0-37.0); MCV 88.2 fL (80.0-100.0); Mean Platelet Volume 7.7; Monocytes # (A) 0.2 k/uL (0-1.0); Monocytes % (A) 5 %; Neutrophils # (A) 3.4 k/uL (1.3-7.7); Neutrophils % (A) 67 %; Platelet Count 223 k/uL (150-450); RBC 3.71 m/uL (3.80-5.40); RDW 14.7 % (11.5-15.5)
[2020-07-20 22:46] LABS: % Iron Saturation 4.74 (12.00-45.00)
== END | disposition home or self-care (01) ==
LOC: PROCWHC3 12:56
PROVIDERS: ATTEND Internal Medicine
DX: D50.9 Iron deficiency anemia, unspecified (principal)
CPT/HCPCS: 83540; 83550; 85025; 96365; J1756

== ENCOUNTER → 2020-08-19 | Outpatient (CLI) | payer BC ==
[2020-08-19 07:45] LABS: African American GFR (CKD) >90 (>60 ml/min/1.73 sqM); Blood Urea Nitrogen 16 mg/dL (7-17); Non-African American GFR(CKD) >90 (>60 ml/min/1.73 sqM)
--- NOTE | 2020-08-19 09:17 | CT ---
EXAMINATION TYPE: CT abdomen pelvis w con DATE OF EXAM: 08/19/2020 HISTORY: Abdominal pain not further specified, history of gastric sleeve CT DLP: 719.20mGycm Automated Exposure Control for Dose Reduction was Utilized. CONTRAST: CT scan of the abdomen and pelvis is performed with IV Contrast, patient injected with 100 ml mL of I sovue 300. COMPARISON: Ultrasound gallbladder December 27, 2018. FINDINGS: LUNG BASES: No significant abnormality is appreciated. LIVER/GB: Gallbladder contracted or surgically absent. The latter is suspected. PANCREAS: No significant abnormality is seen. SPLEEN: No significant abnormality is seen. ADRENALS: No significant abnormality is seen. KIDNEYS: Symmetric cortical medullary uptake and excretion from both kidneys without concerning renal mass or hydronephrosis seen bilaterally. Moderately distended bladder. BOWEL: Surgical changes epigastric region are noted. Suboptimal evaluation as patient has very little intra-abdominal fat. No suspicious small or large bowel dilatation. Oral contrast only reaches level of terminal ileum beginning to empty into the cecum. [id number] diffuse colonic fecal prominen ce. UTERUS/ADNEXA: Slightly anteverted uterus. Adjacent to superior left lateral margin there is a 3.7 x 3.4 cm slightly more hyperdense oval well-circumscribed lesion favoring left ovarian etiology. LYMPH NODES: No greater than 1cm abdominal or pelvic lymph nodes are appreciated. OSSEOUS STRUCTURES: Moderate disc space narrowing with vacuum disc phenomenon and mild/moderate spurr ing L3-L4 and L5-S1 levels. OTHER: No significant additional abnormality is seen. IMPRESSION: 1. Mild to moderate diffuse colonic fecal stasis. Overall nonobstructive bowel gas pattern. 2. There is 3.7 cm left pelvic presumed ovarian cyst or cystic lesion. Advise pelvic ultrasound follo w-up to further evaluate and characterize in a postmenopausal female. 3. Fairly moderate bladder distention, correlate clinically.
== END | disposition home or self-care (01) ==
LOC: RADCTMAIN 06:59
PROVIDERS: ATTEND Internal Medicine
DX: N32.89 Other specified disorders of bladder (principal); K59.89 Other specified functional intestinal disorders
CPT/HCPCS: 82565; 84520; 74177; 36415; Q9967

== ENCOUNTER → 2020-09-06 | Outpatient (CLI) | payer BC ==
--- NOTE | 2020-09-06 17:29 | US ---
EXAMINATION TYPE: US pelvic complete DATE OF EXAM: 09/06/2020 COMPARISON: CT 08/19/2020 CLINICAL HISTORY: N83.209 Ovarian [address] abn left ct TECHNIQUE: TA. Transabdominal sonographic images of the pelvis were acquired. Date of LMP: years ago, but unsure EXAM MEASUREMENTS: Uterus: 7.0 x 3.1 x 1.8 cm Endometrial Stripe: 0.4 cm Right Ovary: 1.8 x 1.9 x 1.0 cm Left Ovary: 1.5 x 1.0 x 0.8 cm 1. Uterus: Anteverted wnl 2. Endometrium: wnl 3. Right Ovary: wnl 4. Left Ovary: 4.8cm adjacent or exophytic cyst seen 5. Bilateral Adnexa: wnl 6. Posterior cul-de-sac: wnl IMPRESSION: Probable left ovarian cyst
== END | disposition home or self-care (01) ==
LOC: RADUSWWP 15:40
PROVIDERS: ATTEND Internal Medicine
DX: N83.209 Unspecified ovarian cyst, unspecified side (principal)
CPT/HCPCS: 76856